=== PATIENT | male | born 1950 | race African-American/Black ===

== ENCOUNTER → 2017-04-02 | Outpatient (CLI) | payer MEDICARE, BC ==
[~2017-04-02] MED LIST: ALBUTEROL17 GM INH; ASPIRIN81 M1 PO; CENTRUM PO; HYCODAN60 ML 5MG/ PO; SIMVASTATIN20 MG PO; ST JOSEPH ASPIR81 M1 PO; TAMIFLU75 M1 PO
== END | disposition home or self-care (01) ==
LOC: CECH 13:08
DX: R01.1 Cardiac murmur, unspecified (principal); I11.0 Hypertensive heart disease with heart failure; I50.30 Unspecified diastolic (congestive) heart failure
CPT/HCPCS: 93306